=== PATIENT | male | born 1970 | race Caucasian/White ===

== ENCOUNTER 2020-11-24 15:44 | Observation (INO) | payer OTHER, SELFPAY ==
[2020-11-24] VITALS (31 sets, daily range): BP systolic 118–158; BP diastolic 67–100; PULSE 69–94; RESP 0–23; TEMP 36.1–37; O2SAT 90–100; BMI 39.6
--- NOTE | ~2020-11-24 | XR_ITS ---
EXAMINATION: XR chest 2V EXAM DATE: 11/24/2020 16:16 INDICATION: Shortness of breath 3-4 months. Swelling of ankles. Hypertension. TECHNIQUE: Frontal and lateral projections of the chest obtained and reviewed. Comparison is made to prior examination from 12/02/2018. FINDINGS: The lungs are clear. There are no pleural effusions. The cardiomediastinal silhouette is within normal limits. There is no pneumothorax suspected. The bones and soft tissues are unremarkab le. IMPRESSION: Normal chest x-ray exam. Reviewed, dictated and finalized at location A. IMPRESSION: Normal chest x-ray exam.
--- NOTE | ~2020-11-24 | US_ITS ---
US renal BI 11/25/2020 08:54 Procedure: Realtime transabdominal ultrasound of the kidneys and bladder. Indication: History of left nephrectomy. Comparison: Ultrasound dated 10/07/2018 Findings: Right renal echotexture is normal without hydronephrosis, contour deforming mass or renal c alculus. The right kidney measures 13.5 cm. Bladder within normal limits. No abnormalities of the lef t nephrectomy bed. Impression: 1: Unremarkable renal ultrasound post left nephrectomy. Reviewed, dictated and finalized at location A. Impression: 1: Unremarkable renal ultrasound post left nephrectomy.
--- NOTE | ~2020-11-24 | CT_ITS ---
EXAMINATION: CT diagnostic chest wo con EXAM DATE: 11/25/2020 14:00 INDICATION: Shortness of breath. History of lobe resection. Hypertension. Nephrectomy. CHF. TECHNIQUE: Spiral CT of the chest without contrast. Axial, coronal and sagittal images were reviewe d. Coronal maximum intensity pixel images of chest reviewed. The dose-length product (DLP) for this examination was 533.45 mGy-cm. The exposure was tailored according to patient size (auto mA exposur e control), and iterative reconstruction (ASIR) was used as additional dose reduction technique. Comp arison is made to prior examination from 10/10/2018. FINDINGS: The lungs are clear. There are no pleural or pericardial effusions. Tracheobronchial t ree is patent. There is no mediastinal, hilar or axillary lymphadenopathy. There is no pneumothor ax. Heart normal in size. No evidence of coronary arterial calcification. Left nephrectomy. The re is mild thoracic spondylosis without osteoblastic or osteolytic lesions identified. Interval res olution of previously seen large right pleural effusion with complete right lung collapse. There is c hronic pleural thickening at the right lung base. IMPRESSION: No acute cardiopulmonary findings. Reviewed, dictated and finalized at location A.
--- NOTE | 2020-11-24 15:58 | ECG_ITS ---
Measurements Intervals [place] Rate: 77 P: 47 SC: 166 QRS: 42 QRSD: 80 T: 46 QT: 357 QTc: 404 Interpretive Statements SINUS RHYTHM BASELINE ARTIFACT- V1-V3 NORMAL ECG Electronically Signed On 11-24-2020 18:41:45 CDT by Mark García D.O.
[2020-11-24 16:11] LABS: Basophils Absolute Auto 0.1 K/mm3 (0.0-0.1); Basophils Percent Auto 0.6 % (0.2-1.2); Eosinophils Absolute Auto 0.4 K/mm3 (0-0.3); Eosinophils Percent Auto 4.8 % (0-4.4); Hematocrit 47.6 % (42.0-52.0); Hemoglobin 16.6 g/dL (14.0-18.0); Immature Granulocyte Absolute 0.05 K/mm3 (0.00-0.031); Immature Granulocyte Percent A 0.6 % (0-0.5); Lymphocytes Absolute Auto 2.12 K/mm3 (0.9-3.2); Lymphocytes Percent Auto 24.5 % (18.3-44.2); Mean Corpuscular HGB Conc 34.9 g/dl (32-36); Mean Corpuscular Hemoglobin 32.3 pg (26-34); Mean Corpuscular Volume 92.6 fl (80-100); Mean Platelet Volume 9.5 fl (7.4-10.4); Monocytes Absolute Auto 0.8 K/mm3 (0.1-0.6); Monocytes Percent Auto 9.3 % (2.6-8.5); Neutrophils Absolute Auto 5.2 K/mm3 (1.3-6.7); Neutrophils Percent Auto 60.2 % (45.5-73.1); Platelet Count Result 259 k/mm3 (150-375); Red Blood Count 5.14 M/mm3 (4.6-6.20); Red Cell Distribution Width 12.3 % (11.5-14.5); White Blood Count 8.7 K/mm3 (4.5-10.0)
--- NOTE | 2020-11-24 16:21 | ED.SOB ---
HPI - SOB/Dyspnea General Chief Complaint: Shortness of Breath/Dyspnea Stated Complaint: SOB Time Seen by Provider: 11/24/20 15:50 History of Present Illness HPI Narrative: 50 yo male w/ h/o htn, sleep apnea, single kidney presents to the ED with multiple complaints. He says that he is chronically short of breath. This is worse with exertion. He has been diagnosed with COPD, but not currently on any treatment. He does report that he has BLE swelling at times. He was started on lasix yesterday and has no swelling now. He also reports daytime sleepiness and inability to stay asleep at night. he is noncompliant with treatment for sleep apnea. He complains of diffuse skin infections. Currently it is only present on his face, where it is red, painful, and bumpy. He says that at times he has areas of skin folds filled with hair, he has none of these to show right now. Related Data Home Medications Medication Instructions Recorded Confirmed furosemide 11/24/20 hydrochlorothiazide 11/24/20 propranolol 11/24/20 Allergies Allergy/AdvReac Type Severity Reaction Status Date / Time No Known Allergies Allergy Verified 11/24/20 15:59 Review of Systems Review of Systems: All systems reviewed & are unremarkable except as noted in HPI and below Constitutional: Constitutional: Reports fatigue and Denies fever(s) Eyes: Eyes: Reports no additional eye complaints ENT: Reports nasal congestion Cardiovascular: Cardiovascular: Denies chest pain Respiratory: Respiratory: Reports chest congestion and Reports dyspnea Gastrointestinal: Gastrointestinal: Denies abdominal pain and Denies nausea Genitourinary: Genitourinary: Reports no additional male genitourinary complaints Integumentary/Breasts: Skin/Breast: Reports as per HPI Neurologic: Reports system reviewed and no additional complaints, except as documented Endocrine: Endocrine: Reports fatigue PMF Past Medical History Medical History (Updated 11/24/20 @ 19:42 by Placido Marcano MD) HTN (hypertension) Single kidney Sleep apnea Social History Social History (Updated 11/24/20 @ 19:38 by Placido Marcano MD) Substance use: former Gender identity (if verbalized by the patient): Male Sexual Orientation (if Verbalized by the Patient): Straight or Heterosexual Exam Const: General: healthy appearing, no acute distress and alert Orientation/consciousness: patient oriented x3 HENMT: Other: papular mildly erythematous rash to chin and cheeks. nasal edema Eyes: Pupils: Equal, round and reactive pupils present Neck: Neck: normal visual inspection and no lymphadenopathy Chest: Chest palpation & inspection: no tenderness Resp: Effort & Inspection: normal respiratory effort Auscultation: no rales, no rhonchi and wheezes Cardio: Jugular venous distension: no JVD Rate: regular rate Rhythm: regular rhythm Heart sounds: no murmurs GI: Inspection: non-distended GI Palp: Yes Soft to palpation and No Tenderness to palpation present (GI) Skin: Wounds: no wounds Neuro: General: patient oriented x3 and moves all extremities Speech: normal speech Gait exam (Neuro): Normal gait present Extrem: General: normal to inspection and no edema Psych: Appearance: well kempt Affect: normal affect Course Vital Signs Vital signs: Vital Signs Temperature 37.0 C 11/24/20 15:51 Pulse Rate 87 11/24/20 15:51 Respiratory Rate 12 11/24/20 15:51 Blood Pressure 157/94 H 11/24/20 15:51 Pulse Oximetry 97 11/24/20 15:51 Temperature 37.0 C 11/24/20 15:51 Pulse Rate 92 11/24/20 18:46 Respiratory Rate 17 11/24/20 18:46 Blood Pressure 135/90 11/24/20 18:46 Pulse Oximetry 96 11/24/20 18:46 MDM - SOB/Dyspnea MDM Narrative Medical decision making narrative: He has multiple non acute complaints. His BUN and creatinine are elevated. I spoke with his PCP she does believe that this is above his baseline and due to the fact that he has
[2020-11-24 16:50] LABS: Anion Gap 9 mmol/L (8-16); Blood Urea Nitrogen 24 mg/dL (9-20); Calcium 9.6 mg/dL (8.4-10.2); Carbon Dioxide 29 mmol/L (22-30); Chloride 100 mmol/L (98-107); Estimated CRCL calculation 57 ml/min; Estimated Glomerular Filt Rate 40; Glucose 102 mg/dL (75-110); NT Pro B Type Natriuretic Pept 46 PG/ML (5-100); Potassium 4.3 mmol/L (3.4-5.0); Sodium 138 mmol/L (137-145); Troponin I < 0.012 ng/mL (0.000-0.034)
[2020-11-24] MEDS: ALBUTEROL SULFATE NEB 2.5 MG/0.5 ML INH 5 MG INHALATION (16:51)
[2020-11-24] MEDS: IPRATROPIUM BR 0.02% INH SOLN 0.5 MG/2.5 ML VIAL INHALATION (16:52)
[2020-11-24] MEDS: DOXYCYCLINE HYCLATE 100 MG TABLET PO (17:25)
[2020-11-24 17:33] LABS: INR 0.9; Prothrombin Time 12.5 Seconds (11.1-14.7)
[2020-11-24 17:34] LABS: Partial Thromboplastin Time 26.9 SECONDS (22.3-36.8)
--- NOTE | 2020-11-24 19:31 | PC.NURSE ---
Pt presents to ED with complaints of sob. Pt noted to become sob with exertion and lung sounds are diminished bilaterally. Pt in no obvious distress at this time and is saturating at 97% on room air. Pt denies all pain and discomfort at this time. Pt is resting on cart in its lowest position with call button and personal items within reach. Pt advised to press call button for assistance.
--- NOTE | 2020-11-24 19:56 | PC.NURSE ---
Nurse on 3rd [facility] room is not cleaned and to wait to send pt.
--- NOTE | 2020-11-24 20:16 | PC.NURSE ---
Report called to receiving nurseIqra. States room is still not cleaned and will call when completed.
--- NOTE | 2020-11-24 22:25 | PM.IMHP ---
H&P: HPI History of Present Illness Date/Time: 11/24/20 22:25 Chief Complaint: shortness of breath Narrative: This is a pleasant 50-year-old morbidly obese male with known history of undiagnosed COPD, hypertension, and chronic lower extremity swelling presented to the hospital with a complaint of chronic shortness of breath. The patient was seen at [facility] emergency room yesterday and sent home with Lasix therapy secondary to lower extremity swelling. The patient mentions that he has been taking his Lasix as prescribed and decided to come to the hospital tonight as he continues to have exertional shortness of breath. The patient has exertional shortness of breath is chronic in nature and has been ongoing for months according to him. He also complains of having a mild rash on his face which has significantly improved recently. He describes having ingrown hairs that lead to local infections and then clear up. Currently he states that the rash that he has and his face is almost resolved and much better than how it was a few weeks ago. The patient was evaluated emergency room this evening and routine labs demonstrated worsening renal function. Patient denies being exposed to any contrast material. He has been taking the Lasix therapy that was started yesterday. He has never been told that he has congestive heart failure. The patient continues to smoke about half a pack of cigarettes daily. He does report having intermittent wheezing on most days. It appears that his baseline creatinine is about 1.0. Today his creatinine was 1.8. Chest x-ray was obtained which was unremarkable. The patient was treated with bronchodilators and admitted to the hospital for further care. On my encounter with the patient [facility] he denies any significant shortness of breath, fevers, chills, cough, chest pain, palpitations, abdominal pain, dysuria, hematuria, nausea, vomiting, diarrhea, rectal bleeding, lower extremity swelling at this time. Review of Systems Review of Systems: All systems reviewed & are unremarkable except as noted in HPI and below PMFSH Past Medical History Medical History (Updated 11/24/20 @ 22:34 by Won Baltazar MD) HTN (hypertension) Single kidney Sleep apnea Surgical History Surgical History (Updated 11/24/20 @ 22:39 by Won Baltazar MD) History of nephrectomy Family History Family History (Updated 11/24/20 @ 21:18 by Iza Day RN) Father CHF (congestive heart failure) Social History Social History Smoking status: Current every day smoker Tobacco type: cigarettes Additional smoking assessment comments: Pt states he smokes <1 pack/day Alcohol intake: current Substance use: current Substance use type: marijuana Living arrangements: with roommate(s) Gender identity (if verbalized by the patient): Male Sexual Orientation (if Verbalized by the Patient): Straight or Heterosexual Spiritual care concerns: No Meds Home Medications and Allergies Home Medications Medication Instructions Recorded Confirmed Type furosemide 20 mg PO BID 11/24/20 11/24/20 History hydrochlorothiazide 12.5 mg PO DAILY 11/24/20 11/24/20 History propranolol 60 mg PO BID 11/24/20 11/24/20 History Allergies Allergy/AdvReac Type Severity Reaction Status Date / Time No Known Allergies Allergy Verified 11/24/20 21:32 Vital Signs Vital Signs - 24 hr 11/24/20 15:51 11/24/20 15:58 11/24/20 16:00 Temperature 37.0 C Pulse Rate 87 85 83 Respiratory Rate 12 12 16 Blood Pressure 157/94 H Pulse Oximetry 97 96 96 11/24/20 16:02 11/24/20 16:04 11/24/20 16:17 Temperature Pulse Rate 85 77 83 Respiratory Rate 10 L Blood Pressure 145/100 H Pulse Oximetry 95 97 11/24/20 16:30 11/24/20 16:45 11/24/20 16:54 Temperature Pulse Rate 87 76 93 Respiratory Rate 15 20 23 H Blood Pressure Pulse Oximetry 98 96
[2020-11-24] MEDS: PROPRANOLOL HCL 20 MG TABLET 60 MG PO (23:10)
[2020-11-24] MEDS: NICOTINE (*PBKC) 14 MG PATCH 1 PATCH TRANSDERM (23:11)
[2020-11-25 04:26] VITALS: BP 140/80; PULSE 68; RESP 14; TEMP 36.2; O2SAT 98
[2020-11-25 06:34] LABS: Basophils Percent Auto 0.5 % (0.2-1.2); Eosinophils Absolute Auto 0.3 K/mm3 (0-0.3); Eosinophils Percent Auto 4.2 % (0-4.4); Hematocrit 47.4 % (42.0-52.0); Hemoglobin 16.2 g/dL (14.0-18.0); Immature Granulocyte Absolute 0.06 K/mm3 (0.00-0.031); Immature Granulocyte Percent A 0.7 % (0-0.5); Lymphocytes Absolute Auto 2.37 K/mm3 (0.9-3.2); Mean Corpuscular HGB Conc 34.2 g/dl (32-36); Mean Corpuscular Volume 93.7 fl (80-100); Mean Platelet Volume 9.9 fl (7.4-10.4); Monocytes Percent Auto 12.5 % (2.6-8.5); Neutrophils Absolute Auto 4.3 K/mm3 (1.3-6.7); Neutrophils Percent Auto 53.1 % (45.5-73.1); Platelet Count Result 238 k/mm3 (150-375); Red Blood Count 5.06 M/mm3 (4.6-6.20); Red Cell Distribution Width 12.4 % (11.5-14.5); White Blood Count 8.2 K/mm3 (4.5-10.0)
[2020-11-25 06:50] LABS: Anion Gap 6 mmol/L (8-16); Blood Urea Nitrogen 28 mg/dL (9-20); Calcium 9.2 mg/dL (8.4-10.2); Carbon Dioxide 31 mmol/L (22-30); Chloride 102 mmol/L (98-107); Estimated CRCL calculation 67 ml/min; Estimated Glomerular Filt Rate 49; Glucose 110 mg/dL (75-110); Potassium 4.2 mmol/L (3.4-5.0); Sodium 139 mmol/L (137-145)
[2020-11-25 09:47] VITALS: PULSE 68
[2020-11-25] MEDS: PROPRANOLOL HCL 20 MG TABLET 60 MG PO ×2 (09:47→21:05)
[2020-11-25 11:45] VITALS: PULSE 68; RESP 16; O2SAT 98
--- NOTE | 2020-11-25 13:29 | PM.IMPN ---
Progress Note: A&P Assessment and Plan (1) Shortness of breath: Code(s): R06.02 - Shortness of breath Status: Acute Assessment and Plan: Likely secondary to undiagnosed COPD and possibly undiagnosed cardiomyopathy. cont bronchodilators. The patient has clear lung toro and chest x-ray is unremarkable. -> worsening SOB x one month CT and ECHO ordered outpt referral to see pulmonology for formal pulmonary function testing. bronchodilators prescribed on discharge. Currently the patient is not fluid overloaded. smoking cessation counseling (2) ISHAN (acute kidney injury): Code(s): N17.9 - Acute kidney failure, unspecified Status: Acute Assessment and Plan: Acute kidney injury is likely secondary to Lasix and hydrochlorothiazide use. renal function improving today Avoid nephrotoxin agents. Renally dose medications. no UTI (3) HTN (hypertension): Code(s): I10 - Essential (primary) hypertension Status: Chronic Assessment and Plan: Monitor blood pressure. cont P.r.n. IV hydralazine is ordered. Resume home diuretic therapy once renal function has improved (4) Tobacco dependence: Code(s): F17.200 - Nicotine dependence, unspecified, uncomplicated Status: Chronic Assessment and Plan: I have readdressed need for smoking cessation w patient regarding tobacco dependence again today in addition to 4 minutes at time of admission. cont nicotine patch Subjective Date/time seen: 11/25/20 13:29 Review of Systems Review of Systems: All systems reviewed & are unremarkable except as noted in HPI and below Constitutional: Comments: Excessive sleepiness and fatigue Respiratory: Respiratory: Reports dyspnea on exertion (Minimal exertion for the last month) Exam Narrative: Exam Narrative: GEN: NAD, AAOx3, cooperative HEENT: NCAT, MMM, EOMI Neck: no JVD Heart: S1S2 RRR Lungs: CTA B/l thoracotomy scar over right lateral posterior thorax Abd: soft, NT, ND, bowel sounds normoactive Ext: moves all, no cyanosis, no clubbing, no edema Neuro: moves all extremities equally, no focal motor weakness, no sensory deficit Psych: mood and affect congruent Objective Data Vital Signs Vital Signs: Vital Signs - 24 hr 11/24/20 15:51 11/24/20 15:58 11/24/20 16:00 Temperature 98.6 F Pulse Rate 87 85 83 Respiratory Rate 12 12 16 Blood Pressure 157/94 H Pulse Oximetry 97 96 96 11/24/20 16:02 11/24/20 16:04 11/24/20 16:17 Temperature Pulse Rate 85 77 83 Respiratory Rate 10 L Blood Pressure 145/100 H Pulse Oximetry 95 97 11/24/20 16:30 11/24/20 16:45 11/24/20 16:54 Temperature Pulse Rate 87 76 93 Respiratory Rate 15 20 23 H Blood Pressure Pulse Oximetry 98 96 11/24/20 17:00 11/24/20 17:02 11/24/20 17:15 Temperature Pulse Rate 94 81 70 Respiratory Rate 11 L 20 14 Blood Pressure Pulse Oximetry 100 96 11/24/20 17:25 11/24/20 17:26 11/24/20 17:30 Temperature Pulse Rate 86 77 79 Respiratory Rate 14 18 19 Blood Pressure 118/82 Pulse Oximetry 94 94 93 11/24/20 17:31 11/24/20 17:45 11/24/20 17:47 Temperature Pulse Rate 80 75 74 Respiratory Rate 17 20 18 Blood Pressure 133/79 136/67 Pulse Oximetry 93 90 93 11/24/20 17:48 11/24/20 18:00 11/24/20 18:02 Temperature Pulse Rate 69 88 77 Respiratory Rate 20 21 H 17 Blood Pressure 131/95 H Pulse Oximetry 93 95 95 11/24/20 18:15 11/24/20 18:16 11/24/20 18:30 Temperature Pulse Rate 91 85 91 Respiratory Rate 15 15 14 Blood Pressure 145/95 H Pulse Oximetry 93 97 95 11/24/20 18:32 11/24/20 18:45 11/24/20 18:46 Temperature Pulse Rate 94 93 92 Respiratory Rate 0 L 23 H 17 Blood Pressure 134/80 135/90 Pulse Oximetry 94 95 96 11/24/20 19:53 11/24/20 19:54 11/24/20 21:46 Temperature 97 F L Pulse Rate 87 87 Respiratory Rate 19 17 Blood Pressure 150/80 H 158/86 H Pulse Oximetry 94 94 96 11/24/20 23:
[2020-11-25 14:00] VITALS: BP 142/84; PULSE 72; RESP 16; TEMP 36.7; O2SAT 99
[2020-11-25 19:31] VITALS: BP 137/84; PULSE 88; RESP 17; TEMP 36.2; O2SAT 96
[2020-11-25 21:05] VITALS: PULSE 68
[2020-11-25] MEDS: NICOTINE (*PBKC) 14 MG PATCH 1 PATCH TRANSDERM (22:22)
--- NOTE | 2020-11-25 22:39 | ECHO_ITS ---
Patient Info Name: Roberto Alarcon Age: 50 years : 1970 Gender: Male Ht: 69 in Wt: 268 lbs BSA: 2.49 m2 HR: 65 bpm BP: 140 / 80 mmHg Heart Rhythm: Sinus Rhythm Technical Quality: Fair Exam Date: 11/25/2020 2:17 PM Exam Location: [facility] Pulmonary Patient Status: Inpatient Admit Date: 11/24/2020 Staff Ordering Physician: Won Baltazar MD Spark Plug Assembler: Kristin Arrington RDCS Attending Provider: Wen Quiles MD Referring Physician: Giovanny VARGAS; Exam Type: CA echo doppler color flow Study Info Indications I50.9 - Heart failure, unspecified Complete two-dimensional, color flow and Doppler transthoracic echocardiogram is performed. Summary 1. Complete two-dimensional, color flow and Doppler transthoracic echocardiogram is performed. 2. Normal left ventricular size, thickness and function with no focal wall motion abnormalities. Calculated ejection fraction 69%, visual ejection fraction 65-70%. Grade 1 diastolic dysfunction is present. There is some mild septal hypertrophy with no outflow obstruction. 3. Floppy possibly aneurysmal atrial septum. 4. Dilated sinus of Valsalva 4.1 cm. Normal ascending aorta, 3.0 cm. 5. No significant valve disease. 6. Normal sinus rhythm. Left Ventricle Left ventricular chamber dimension is normal. Left ventricular systolic function is normal, estimated at 65-70%. There is no increased left ventricular wall thickness. Left ventricular septal wall motion is normal. The left ventricular diastolic function is grade I diastolic dysfunction. Right Ventricle Right ventricular chamber dimension is normal. Right ventricular systolic function is normal. Left Atria Left atrial chamber dimension is normal. Right Atria Right atrial chamber dimension is normal. Aortic Valve The aortic valve is trileaflet. There is no aortic valve sclerosis. There is no aortic valve stenosis. There is no aortic valve regurgitation. Pulmonic Valve The pulmonic valve is normal. There is no pulmonic valve stenosis. There is no pulmonic regurgitation. Mitral Valve The mitral valve has normal leaflets. There is no mitral valve stenosis. There is no mitral valve regurgitation. Tricuspid Valve The tricuspid valve leaflets are normal. There is no significant tricuspid valve stenosis. There is trace tricuspid valve regurgitation. No pulmonary hypertension, estimated pulmonary arterial systolic pressure is 29 mmHg. Pericardium/Pleural The pericardium appears normal. There is no pericardial effusion. Inferior Vena Cava Normal inferior vena cava with >50% collapse upon inspiration consistent with Empty right atrial pressure, 10 mmHg. Aorta The aortic root size at the sinus of Valsalva is mildly dilated. The prox ascending aorta size is normal. Left Ventricular Outflow Tract Name Value Normal LVOT 2D LVOT Diameter 2.1 cm LVOT Doppler LVOT Peak Gradient 6 mmHg LVOT Mean Gradient 4 mmHg LVOT VTI 23 cm LVOT VTI/AV VTI Ratio 0.9
[2020-11-26 05:33] VITALS: BP 113/77; PULSE 70; RESP 17; TEMP 36.1; O2SAT 98
[2020-11-26 08:50] VITALS: PULSE 70
[2020-11-26] MEDS: PROPRANOLOL HCL 20 MG TABLET 60 MG PO (08:50)
[2020-11-26] MEDS: traMADol HCL (*CRX) 50 MG TABLET PO (09:30)
[2020-11-26 09:50] LABS: Hematocrit 46.1 % (42.0-52.0); Hemoglobin 15.8 g/dL (14.0-18.0); Mean Corpuscular HGB Conc 34.3 g/dl (32-36); Mean Corpuscular Hemoglobin 32.2 pg (26-34); Mean Corpuscular Volume 94.1 fl (80-100); Mean Platelet Volume 9.7 fl (7.4-10.4); Platelet Count Result 220 k/mm3 (150-375); Red Cell Distribution Width 12.5 % (11.5-14.5); White Blood Count 7.4 K/mm3 (4.5-10.0)
[2020-11-26 10:02] LABS: Alanine Aminotransferase 33 U/L (4-50); Albumin Level 3.8 g/dL (3.5-5.1); Alkaline Phosphatase 57 U/L (38-126); Anion Gap 5 mmol/L (8-16); Aspartate Amino Transferase 28 U/L (17-59); Bilirubin,Total 0.6 mg/dL (0.2-1.3); Blood Urea Nitrogen 26 mg/dL (9-20); Calcium 9.4 mg/dL (8.4-10.2); Carbon Dioxide 28 mmol/L (22-30); Chloride 103 mmol/L (98-107); Estimated CRCL calculation 77 ml/min; Estimated Glomerular Filt Rate 58; Glucose 188 mg/dL (75-110); Magnesium 1.8 mg/dL (1.6-2.3); Potassium 4.3 mmol/L (3.4-5.0); Sodium 136 mmol/L (137-145)
--- NOTE | 2020-11-26 12:38 | PM.DS ---
DS: Admitting Diagnosis Admitting Diagnosis Admitting Diagnosis: SOB ISHAN chronic back pain Tob dependence DS: Discharge Diagnosis Discharge Diagnosis (1) COPD (chronic obstructive pulmonary disease): Code(s): J44.9 - Chronic obstructive pulmonary disease, unspecified Status: Acute (2) Chronic back pain: Code(s): M54.9 - Dorsalgia, unspecified; G89.29 - Other chronic pain Status: Acute (3) Tobacco dependence: Code(s): F17.200 - Nicotine dependence, unspecified, uncomplicated Status: Chronic (4) HTN (hypertension): Code(s): I10 - Essential (primary) hypertension Status: Chronic (5) ISHAN (acute kidney injury): Code(s): N17.9 - Acute kidney failure, unspecified Status: Acute (6) Shortness of breath: Code(s): R06.02 - Shortness of breath Status: Acute (7) Folliculitis barbae: Code(s): L73.8 - Other specified follicular disorders Status: Acute (8) Seborrheic dermatitis: Code(s): L21.9 - Seborrheic dermatitis, unspecified Status: Acute DS: Summary Hospital Course Reason for hospitalization: SOB Hospital Course: 50-year-old male admitted to the hospital with complaint of shortness of breath for 4 weeks and LE swelling intermittently for 2 weeks. He was found to be in ISHAN and NSAIDs, lasix, and hctz were held. His renal function improved. Pt had ECHO in pt that showed a mild grade [address] chest which was without acute findings. He was counseled extensively on need for smoking cessation. and pt was subsequently discharged on RA in stable condition w new COPD regimen and antibiotic ointment for his folliculitis barbae, Tramadol and Tylenol for his chronic back pain. He has been counseled to avoid NSAIDs as they can be harmful to his solitary kidney. Pt has been started on Advair at time of dc and prescribed rescue inhaler. He is advised to follow up w pulmonology for PFTs. Bactroban prescribed for folliculitis. Blood pressure remained within normal limits during hospitalization without medical therapy. Advised patient to follow-up with PCP for ongoing evaluation and management of blood pressure in the outpatient setting. Time spent discussing smoking cessation with patient: more than 10 minutes Status at Discharge Functional status at discharge: independent ambulation Overall status at discharge: patient is back to baseline Time Spent with Patient Time attestation: Total time spent providing and/or coordinating discharge services: >30 min spent for this encounter Exam Narrative: Exam Narrative: GEN: NAD, AAOx3, cooperative HEENT: NCAT, MMM, EOMI Neck: no JVD Heart: S1S2 RRR Lungs: CTA B/l Ext: moves all, no cyanosis, no clubbing, no edema Neuro: CN intact, moves all extremities equally Psych: mood and affect congruent DS: Data Data Completed and Pending Labs on day of discharge: Labs from last 24 hours 11/26/20 11/26/20 11/24/20 09:34 09:34 16:00 WBC 7.4 RBC 4.90 Hgb 15.8 Hct 46.1 MCV 94.1 MCH 32.2 MCHC 34.3 RDW 12.5 Plt Count 220 MPV 9.7 Sodium 136 L 138 Potassium 4.3 4.3 Chloride 103 100 Carbon Dioxide 28 29 Anion Gap 5 L 9 BUN 26 H 24 H Creatinine 1.30 1.80 H Estim Creat Clear Calc 77 57 Estimated GFR 58 L 40 L Glucose 188 H 102 Calcium 9.4 9.6 Magnesium 1.8 Total Bilirubin 0.6 AST 28 ALT 33 Alkaline Phosphatase 57 Troponin I < 0.012 NT-Pro-B Natriuret Pep 46 Total Protein 6.0 L Albumin 3.8 Discharge Plan Discharge Attending physician on discharge: Wen Quiles Consulting providers: Luiz Rodriguez Discharging Clinician: Wen Quiles Anticipated Discharge Date/Time: 11/26/20 12:12 Patient Disposition: Home, Self-Care Activity: as tolerated Diet: heart healthy Discharge Instructions: Follow-up with pipelines supervisor for pulmonary function testing Pat
[2020-11-26 14:00] VITALS: BP 104/78; PULSE 96; RESP 18; TEMP 36.4; O2SAT 97
== END 2020-11-26 15:45 | disposition home or self-care (01) ==
LOC: ANHED 16:09 → ANH3MED 19:27
PROVIDERS: Emergency Medicine; Family Medicine; Admitting Provider Family Medicine; Emergency Provider Emergency Medicine; PCP Internal Medicine; Visit Provider Hospitalist
DX: R06.02 Shortness of breath (principal); N17.9 Acute kidney failure, unspecified; J44.9 Chronic obstructive pulmonary disease, unspecified; E66.01 Morbid (severe) obesity due to excess calories; F17.210 Nicotine dependence, cigarettes, uncomplicated; G47.33 Obstructive sleep apnea (adult) (pediatric); I10 Essential (primary) hypertension; L21.9 Seborrheic dermatitis, unspecified; L73.8 Other specified follicular disorders; M79.89 Other specified soft tissue disorders; Z68.39 Body mass index [BMI] 39.0-39.9, adult; Z90.5 Acquired absence of kidney
CPT/HCPCS: 36415; 71046; 71250; 76775; 80048; 80053; 83735; 83880; 84484; 85025; 85027; 85610; 85730; 93005; 93306; 94640; 99285; A9270; G0378; G0379; Q9957

== ENCOUNTER 2021-04-01 19:42 | Emergency (ER) | payer OTHER, SELFPAY ==
--- NOTE | ~2021-04-01 | XR_ITS ---
EXAMINATION: XR chest 2V DATE: 04/01/2021 19:57 INDICATION: Chest pain and shortness of breath TECHNIQUE: PA and lateral views of the chest are obtained. COMPARISON: 11/24/2020 FINDINGS: The lungs are free of acute opacities. There is no pleural effusion or pneumothorax. The ca rdiomediastinal silhouette is normal. There is mild thoracic spondylosis. Surgical clips are noted in the left upper abdomen. IMPRESSION: 1. No acute cardiopulmonary abnormality. Reviewed, dictated and finalized at location A.
[2021-04-01 19:46] VITALS: BP 169/108; PULSE 112; RESP 20; TEMP 36.4; O2SAT 98
--- NOTE | 2021-04-01 19:46 | ECG_ITS ---
Measurements Intervals Freedom Rate: 105 P: 42 [place]: 163 QRS: 19 QRSD: 83 T: 42 QT: 316 QTc: 419 Interpretive Statements SINUS TACHYCARDIA BASELINE WANDER- II, III, AVF, V1-V2 ABNORMAL ECG Electronically Signed On 04-02-2021 7:31:38 CDT by Mark García D.O.
[2021-04-01 20:12] LABS: Basophils Percent Auto 0.6 % (0.2-1.2); Eosinophils Absolute Auto 0.3 K/mm3 (0-0.3); Eosinophils Percent Auto 3.9 % (0-4.4); Hematocrit 43.6 % (42.0-52.0); Immature Granulocyte Absolute 0.03 K/mm3 (0.00-0.031); Immature Granulocyte Percent A 0.4 % (0-0.5); Lymphocytes Absolute Auto 1.73 K/mm3 (0.9-3.2); Lymphocytes Percent Auto 24.3 % (18.3-44.2); Mean Corpuscular HGB Conc 34.4 g/dl (32-36); Mean Corpuscular Hemoglobin 32.6 pg (26-34); Mean Corpuscular Volume 94.8 fl (80-100); Mean Platelet Volume 9.5 fl (7.4-10.4); Monocytes Absolute Auto 0.8 K/mm3 (0.1-0.6); Monocytes Percent Auto 11.4 % (2.6-8.5); Neutrophils Absolute Auto 4.2 K/mm3 (1.3-6.7); Neutrophils Percent Auto 59.4 % (45.5-73.1); Platelet Count Result 260 k/mm3 (150-375); Red Cell Distribution Width 12.2 % (11.5-14.5); White Blood Count 7.1 K/mm3 (4.5-10.0)
[2021-04-01 20:18] VITALS: O2SAT 95
[2021-04-01 20:20] LABS: Anion Gap 9 mmol/L (8-16); Blood Urea Nitrogen 21 mg/dL (9-20); Calcium 9.4 mg/dL (8.4-10.2); Carbon Dioxide 26 mmol/L (22-30); Chloride 103 mmol/L (98-107); Estimated Glomerular Filt Rate 58; Glucose 145 mg/dL (65-110); Potassium 3.7 mmol/L (3.4-5.0); Sodium 138 mmol/L (137-145)
[2021-04-01] MEDS: ALBUTEROL SULFATE NEB 2.5 MG/0.5 ML INH 5 MG INHALATION (21:41)
[2021-04-01] MEDS: IPRATROPIUM BR 0.02% INH SOLN 0.5 MG/2.5 ML VIAL INHALATION (21:41)
[2021-04-01 21:44] VITALS: PULSE 97; RESP 22
[2021-04-01 21:51] VITALS: PULSE 95; RESP 22
[2021-04-01 22:29] VITALS: BP 140/89; PULSE 98; RESP 14; O2SAT 94
--- NOTE | 2021-04-01 22:33 | ED.SOB ---
HPI - SOB/Dyspnea General Chief Complaint: Shortness of Breath/Dyspnea Stated Complaint: SOB for a long time Time Seen by Provider: 04/01/21 20:19 History of Present Illness HPI Narrative: Patient is a 50-year-old male who presents ER with complaints of cold-like symptoms and fatigue. Patient reports for months he has been having sinus congestion with cough. He also reports she is sleeping 24 hours a day. He reports that when he gets like this he needs pathologies and cultures performed to get to the underlying source of what is going on. He does have a primary care physician who is giving him referrals to an unknown doctor. Reports that anytime he gets a referral it take 6 months to get in and he feels this is unacceptable. No loss of taste or smell. No known sick contacts. Related Data Home Medications Medication Instructions Recorded Confirmed propranolol 60 mg PO BID 11/24/20 11/24/20 cephalexin 04/01/21 doxycycline hyclate 04/01/21 hydrochlorothiazide 04/01/21 Allergies Allergy/AdvReac Type Severity Reaction Status Date / Time No Known Allergies Allergy Verified 04/01/21 20:17 Review of Systems Review of Systems: All systems reviewed & are unremarkable except as noted in HPI and below Constitutional: Constitutional: Denies chills, Reports fatigue, Denies fever(s) and Reports weakness ENT: Reports nasal congestion and Denies sore throat Respiratory: Respiratory: Reports chest congestion, Reports cough, Reports dyspnea and Reports wheezing Gastrointestinal: Gastrointestinal: Denies abdominal pain, Denies nausea and Denies vomiting PMFSH Past Medical History Medical History (Updated 04/01/21 @ 22:38 by Aston Wyatt MD) Bipolar 1 disorder Diastolic CHF, chronic HTN (hypertension) Polysubstance abuse Single kidney Sleep apnea Surgical History Surgical History (Updated 11/24/20 @ 22:39 by Won BaltazarMD) History of nephrectomy Family History Family History (Updated 11/24/20 @ 21:18 by Iza Day RN) Father CHF (congestive heart failure) Social History Social History Smoking status: Current every day smoker Tobacco type: cigarettes Additional smoking assessment comments: Pt states he smokes <1 pack/day Alcohol intake: current Substance use: current Substance use type: marijuana Gender identity (if verbalized by the patient): Male Spiritual care concerns: No Exam Narrative: GENERAL: Well-appearing, well-nourished, and in no acute distress. HEAD: Normocephalic, atraumatic. CHEST: Faint end expiratory wheezing. No respiratory distress. HEART: Regular rate and rhythm. Normal peripheral pulses. ABDOMEN: Soft, nontender, nondistended. EXTREMITIES: Normal range of motion. No edema. SKIN: Warm, dry, no rash. NEURO: Aert and oriented x3. PSYCH: Normal mood and affect. Course Course Emergency Course: Labs unremarkable. Chest x-ray without infectious process. Patient swabbed for Covid as she has not been vaccinated he is reporting cold-like symptoms. Discussed I would like to place patient on steroids to treat as bronchitis/COPD exacerbation. Patient wants cultures and other pathologies performed. Discussed that I do not have a reason to admit him to the hospital and patient treatment should suffice. Patient reports he is just going to check out and check back in through the back door if this occurs. Patient also became very distraught and angry at one point during the exam because asked him to clear his throat and stop making referred upper respiratory noises. Patient reports he is not yelling that he just speaks loudly we would know if he was yelling. Vital Signs Vital signs: Vital Signs Temperature 97.6 F 04/01/21 19:46 Pulse Rate 112 H 04/01/21 19:46 Respiratory Rate 20 04/01/21 19:46 Blood Pressure 169/108 H 04/01/21 19:46 Pulse Oximetry 98 04/01/21 19:46 Temperat
--- NOTE | 2021-04-01 22:58 | PC.NURSE ---
pt upset and states he will be checking in the back door if he is forced to leave out the front door . Security called. Pt left the ed and states I will be back in the morning .
[2021-04-02 18:26] LABS: SARS-CoV-2 RNA PCR Negative
== END 2021-04-01 22:46 | disposition home or self-care (01) ==
PROVIDERS: Emergency Medicine; Emergency Provider Emergency Medicine; PCP Internal Medicine
DX: J40 Bronchitis, not specified as acute or chronic (principal); Z20.822 Contact with and (suspected) exposure to COVID-19; I50.32 Chronic diastolic (congestive) heart failure; G47.30 Sleep apnea, unspecified; I11.0 Hypertensive heart disease with heart failure; Z90.5 Acquired absence of kidney; F17.210 Nicotine dependence, cigarettes, uncomplicated; R00.0 Tachycardia, unspecified
CPT/HCPCS: 36415; 71046; 80048; 85025; 93005; 94640; 99284; C9803; U0003; U0005

== ENCOUNTER 2023-04-06 13:38 | Outpatient (CLI) | payer OTHER, SELFPAY ==
--- NOTE | ~2023-04-06 | US_ITS ---
EXAMINATION: US soft tissue upper back DATE: 04/06/2023 14:08 INDICATION: Mass of skin. TECHNIQUE: Multiple grayscale and Doppler ultrasound images of the back were obtained. COMPARISON: Chest CT 11/25/2020 FINDINGS: In the left inferior posterior thorax, there is a 4.3 x 1.3 x 5.6 cm intramuscular lipoma. IMPRESSION: 1. 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 Reviewed, dictated and finalized at location B.
== END 2023-04-06 13:39 | disposition home or self-care (01) ==
PROVIDERS: PCP Internal Medicine; Visit Provider Internal Medicine
DX: D17.1 Benign lipomatous neoplasm of skin and subcutaneous tissue of trunk (principal)
CPT/HCPCS: 76604

== ENCOUNTER 2025-05-28 12:08 | Outpatient (CLI) | payer OTHER, SELFPAY ==
--- OUTSIDE RECORDS SUMMARY | 2011-01-06 19:00 | XMS_ITS | Continuity of Care Document ---
[facility] Organization [facility] Address [address] [place] [address] Phone Care Team Providers Care Bog Worker Name Role Phone Deng Chaparro MD Unavailable Unavailable Medications Medication Instructions Dosage Effective Dates (start - stop) Status Comments SOMA 350 MG TABLET 1 TID - Active ULTRAM 50 MG TABLET 2 QID - Active LORTAB 10/500 TABLET 1 Q 6HR 2005 - No Longer Active ULTRAM 50 MG TABLET 2 QID No Longer Active ULTRAM 50 MG TABLET 2 QID No Longer Active ULTRAM 50 MG TABLET 2 QID No Longer Active SOMA 350MG TABS 1 TID - No Longer Active ULTRAM 50MG TABS 2 QID - No Longer Active LORTAB 10-500MG TABS 1 Q 6HR 2005 - No Longer Active Advance Directives Directive Yes / No Effective Date File Name No Information Encounters Encounter Description Practice Location Reason(s) For Visit Diagnoses Date Provider Providers Copied on Encounter [facility] [address], [place], [place], [id number], [place] tel:[phone] [facility] IM No Information Shankar Vilchis. [address], [place], [place], [address]. tel:[phone] [facility]), [address], [place], [place], [address], tel:[phone] [facility] BACKACHE NOS Conversion Doctor. [address], [place], [address], [place]. [facility], [address], [place], [place], [address], tel:[phone] [facility] IM JOINT PAIN-L/LEG Shankar Vilchis. [address], [place], [place], [address]. tel:[phone] Family History Family Member Type Diagnosis Age At Onset No Information Payers Payer name Insurance type Covered constitution party ID Authoriza tion(s) No Information Social History Type Description Quantity Date Captured Comments Sex Male Smoking Status No Information Chief Complaint And Reason For Visit No Information Reason For Referral Reason For Referral No Information History Of Present Illness Encounter Date Complaint History Of Prese nt Illness No Information Functional Status Date Functional Assessmen t No Information Instructions Date Instruction Additional Infor mation No Information Assessments Type Assessment Date No Information Patient Care Teams Name Effective Dates (start - stop) Status Members No Information
[2025-05-28 12:32] LABS: Hematocrit 40.6 % (40.0-54.0); Hemoglobin 13.0 g/dL (14.0-18.0); Immature Granulocyte Percent A 0.4 % (0.0-0.0); Lymphocytes Absolute Auto 1.92 K/mm3 (1.10-4.50); Mean Corpuscular HGB Conc 32.0 g/dL (32-36); Mean Corpuscular Hemoglobin 30.0 pg (27.0-31.0); Mean Corpuscular Volume 93.8 fL (78.0-102.0); Nucleated Red Blood Cells Absolute Auto 0.04 K/mm3 (0.00-0.00); Nucleated Red Blood Cells Perc 0.5 % (0-0.0); Platelet Count Result 229 K/mm3 (150-420); Red Blood Count 4.33 M/mm3 (4.70-6.10); White Blood Count 8.0 K/mm3 (4.8-10.8)
[2025-05-28 14:34] LABS: Alanine Aminotransferase 24 U/L (6-50); Albumin Level 4.2 g/dL (3.5-5.1); Alkaline Phosphatase 67 U/L (38-126); Anion Gap 9 mmol/L (4-12); Aspartate Amino Transferase 26 U/L (17-59); Bilirubin,Total 0.4 mg/dL (0.2-1.3); Blood Urea Nitrogen 27 mg/dL (9-20); Calcium 10.0 mg/dL (8.4-10.2); Carbon Dioxide 28 mmol/L (22-30); Chloride 104 mmol/L (98-107); Cholesterol 182 mg/dL (0-200); Estimated Glomerular Filt Rate 54; Glucose 95 mg/dL (65-110); HDL Direct 48 mg/dL; Osmolality Calculated 297 mOsm/kg (285-295); Potassium 4.7 mmol/L (3.4-5.0); Sodium 141 mmol/L (137-145); Total Protein 6.6 g/dL (6.3-8.2); Triglycerides 138 mg/dL (<150)
--- OUTSIDE RECORDS SUMMARY | 2025-05-28 14:42 | XMS_ITS | Clinical Summary ---
Author Organization [facility] Address [address] [place] [address] Care Team Providers Care Life Trainer Name Role Phone Jarocho Plummer MD Primary Care Provider [phone] Allergies No known active allergies Medications DULoxetine DR (CYMBALTA) 60 mg capsule Take 60 mg by mouth daily. Active propranolol (INDERAL) 40 mg tablet Take 40 mg by mouth 4 (four) times a day. Active naproxen (NAPROSYN) 250 mg tablet Take by mouth 2 (two) times a day with meals. Active oxyCODONE-aceta minophen (PERCOCET) 5-325 mg per tabletIndicatio ns:Pain Take 1-2 tablets by mouth every 6 (six) hours as needed for pain (1 tablet for mild to moderate pain or 2 tablets for severe pain). 8 tablet 03/03/2018 Active furosemide (LASIX) 20 mg tablet Take 1 tablet (20 mg total) by mouth 2 (two) times a day for 3 days 6 tablet 11/21/2020 Active primidone (MYSOLINE) 50 mg tabletIndicatio ns:Essential tremor 1/4 tab qhs for 1 week, 1/2 tab po qhs for 1 week, 1/4 tab qam and 1/2 tab qhs for 1 week, 1/2 tab po bid for 1 week, 1/2 tab qam, 1 tab qhs for 1 week, then 1 tab bid 120 tablet 3 01/28/2021 Active hydroCHLOROthia zide (HYDRODIURIL) 12.5 mg tablet Take 12.5 mg by mouth daily 01/24/2021 Active Active Problems Problem Noted Date Diagnosed Date Essential tremor 01/28/2021 Surgical History Surgery Date Site/Laterality Comments W[place] NEPHRECTOMY W/PRTL URETER ECTOMY W/OPEN RIB RESCJ Nephrectomy - (Added by HALIE Conv) BACK SURGERY Back Surgery - (Added by HALIE Conv) Medical History Medical History Date Comments Personal history of other di seases of the nervous system and sense organs History of radicul opathy - (Added by HALIE Conv) Family History Medical History Relation Name Comments Diabetes Father Heart failure Father Relation Name Status Comments Father Social History Tobacco Use Types Packs/Day Years Used Date Smoking Tobacco: Every Day Cigarettes 1 35 Smokeless Tobacco: Never Tobacco Cessation:Ready to Q uit: No; Counseling Given: Yes Alcohol Use Standard Drinks/Week Comments No 0 (1 standard drink = 0.6 oz pur e alcohol) Sex and Gender Information Value Date Recorded Sex Assigned at Not on file 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 Gender Identity Not on file Sexual Orientation Not on file Obstetrics History Last Filed Vital Signs Vital Sign Reading Time Taken Comments Blood Pressure 150/88 02/17/2021 11:51 AM CDT Pulse 60 02/17/2021 11:51 AM CDT Temperature 36.4 C (97.6 F) 11/21/2020 5:37 PM CDT Respiratory Rate 18 11/21/2020 5:37 PM CDT Oxygen Saturation 93% 11/21/2020 8:00 PM CDT Inhaled Oxygen Concentration - - Weight 125.2 kg (276 lb) 02/17/2021 11:51 AM CDT Height 175.3 cm (5' 9) 02/17/2021 11:51 AM CDT Body Mass Index 40.76 02/17/2021 11:51 AM CDT Plan of Treatment Health Maintenance Due Date Last Done Comments Colon Cancer Screening-Colonoscopy 1968 Depression Screening 1968 Hepatitis C Screening 1968 Prostate Cancer Screening-PSA 1968 DTaP/Tdap/Td Vaccine (1 - Tdap) 11/19/1979 Hepatitis B Screening 1986 Regular Well Visit/Exam 18-64 1986 Pneumococcal vaccine <65 (1 of 2 - PCV) 11/19/1987 Zoster Vaccine (1 of 2) 2018 Influenza Vaccine (#1) 2025 10/12/2018 Insurance Care Teams Life Trainer Relationship Specialty Start Date End Date Jarocho Plummer MD [address] [place] [address] PCP - General Internal Medicine 01/26/21
--- OUTSIDE RECORDS SUMMARY | 2025-05-28 14:42 | XMS_ITS | Clinical Summary ---
Author Organization [facility] Facility Address [address] [address] Care Team Providers Care Freelance Graphic Designer Name Role Phone Unavailable Primary Care Provider Unavailabl e Allergies No known active allergies Medications albuterol HFA (PROVENTIL HFA;VENTOLIN HFA) 108 (90 Base) MCG/ACT inhaler Inhale 1 puff every 4 (four) hours if needed Active hydroCHLOROthiaz darren (HYDRODIURIL) 12.5 MG tablet Take 12.5 mg by mouth 1 (one) time each day Active pregabalin (LYRICA) 50 MG capsule Take 50 mg by mouth 2 (two) times a day Active propranolol (INDERAL) 60 MG tablet Take 60 mg by mouth 2 (two) times a day Active Social History Tobacco Use Types Packs/Day Years Used Date Smoking Tobacco: Never Assessed Sex and Gender Information Value Date Recorded Sex Assigned at Not on file Legal Sex Male 1:35 PM EDT Gender Identity Not on file Sexual Orientation Not on file Plan of Treatment Health Maintenance Due Date Last Done Comments Hepatitis B Vaccine (1 of 3 - 19+ 3-dose series) 11/18 Colorectal Cancer Screening: Annual FOBT 2017 Colorectal Cancer Screening: Colonoscopy 2017 Colorectal Cancer Screening: Sigmoidoscopy 2017 Pneumococcal Vaccine: 50+ Years (1 of 1 - PCV) 019 Influenza Vaccine (#1) 2025
--- OUTSIDE RECORDS SUMMARY | 2025-05-28 14:42 | XMS_ITS | Patient Health Record ---
Author Organization [facility] Address [address] [place] [address] Care Team Providers Care Tar Distributor Operator Name Role Phone Garett Walker Unavailable [phone] Reason For Referral No Information Medications Medication SIG (Take, Route, Frequency, Duration) Notes Start Date End Date Status Venlafaxine HCl 37.5 MG Tablet Oral Active lamoTRIgine 100 MG Tablet Oral Active Clarithromycin 500 MG Tablet Oral Active HYDROcodone-Acetaminophen 7.5-325 MG Tablet Oral Active Wellbutrin SR 150 MG Tablet Extended Release 12 Hour Oral Act zara traMADol HCl 50 MG Tablet Oral Active ProAir HFA 108 (90 Base) MCG/ACT Aerosol Solution Inhalation Act zara DULoxetine HCl 30 MG Capsule Delayed Release Particles Oral Ac tive buPROPion HCl ER (XL) 300 MG Tablet Extended Release 24 Hour Oral Active Wellbutrin XL 300 MG Tablet Extended Release 24 Hour Oral Act zara Naproxen 500 MG Tablet Oral Active methylPREDNISolone 4 MG Tabl et Therapy Pack Oral Active Propranolol HCl 60 MG Tablet Oral Active Podofilox 0.5 % Solution External Active Suboxone 8-2 MG Film Sublingual Active Azithromycin 250 MG Tablet Oral Active DULoxetine HCl 60 MG Capsule Delayed Release Particles Oral Ac tive HYDROcodone-Acetaminophen 5-325 MG Tablet Oral Active Plan Of Treatment No Information
--- OUTSIDE RECORDS SUMMARY | 2025-05-28 14:42 | XMS_ITS | Clinical Summary ---
Author Organization [facility] Address [address] [facility], [place] [address] Phone Care Team Providers Care Rat Culturist Name Role Phone Jarocho Plummer MD Primary Care Provider [phone] Allergies No known active allergies Medications DULoxetine (CYMBALTA) [address] Particles Take 60 mg by mouth daily. Active propranolol (INDERAL) 60 MG Tablet Take 60 mg by mouth 3 times daily. Active albuterol 108 (90 Base) MCG/ACT Aerosol Solution take 2 Puffs by inhalation every 4 hours as needed. Active hydroCHLOROthia zide 12.5 MG Tablet Take by mouth daily. Active primidone (MYSOLINE) 50 MG Tablet Take 50 mg by mouth every 6 hours. Active Family History Medical History Relation Name Comments ADD / ADHD Father Depression Father Hypertension Father Relation Name Status Comments Father Social History Tobacco Use Types Packs/Day Years Used Date Smoking Tobacco: Every Day Cigarettes 1 40 Smokeless Tobacco: Never Alcohol Use Standard Drinks/Week Comments Yes 0 (1 standard drink = 0.6 oz pur e alcohol) moderate to heavy Sex and Gender Information Value Date Recorded Sex Assigned at Not on file Legal Sex Male 4:43 PM CDT Gender Identity Not on file Sexual Orientation Not on file Last Filed Vital Signs Vital Sign Reading Time Taken Comments Blood Pressure - - Pulse - - Temperature - - Respiratory Rate - - Oxygen Saturation - - Inhaled Oxygen Concentration - - Weight - - Height 175.9 cm (5' 9.25) 06/20/2019 1:13 PM CD T Body Mass Index - - Plan of Treatment Health Maintenance Due Date Last Done Comments Hepatitis C Virus (HCV) Screening 1968 TdaP Immunization 1968 Hepatitis B Immunization (1 of 3 - 19+ 3-dose series) 11/19/1987 Cologuard 2013 Colonoscopy 2013 Colorectal Cancer Screening 2013 Immunochemical Fecal Occult Blood 2013 Pneumococcal Immunization (5 0+ years) (1 of 1 - PCV) 2018 Zoster Immunization (1 of 2) 2018 Influenza Immunization (#1) 2025 SARS-COV-2 Immunization (1 - 2023-25 season) 2025 Respiratory Syncytial Virus (RSV) Immunization (Adult) (1 - 1-dose 75+ series) 11/19/2043 Human Papillomavirus (HPV) Immunization Aged Out No longer eligible b ased on patient's age to complete this topic Meningococcal Immunization (ACWY) Aged Out No longer eligible based on patient's age to complete this topic Rotavirus Immunization Aged Out No lo nger eligible based on patient's age to complete this topic Insurance MEDICAID [employer] Care Teams Rat Culturist Relationship Specialty Start Date End Date Jarocho Plummer MD [address] [place] [address] PCP - General Internal Medicine 02/18/19
== END 2025-05-28 12:09 | disposition home or self-care (01) ==
PROVIDERS: PCP Family Medicine; Visit Provider Family Medicine
DX: I10 Essential (primary) hypertension (principal); E66.9 Obesity, unspecified; N17.9 Acute kidney failure, unspecified; G47.33 Obstructive sleep apnea (adult) (pediatric)
CPT/HCPCS: 36415; 80053; 80061; 85025

== ENCOUNTER 2025-08-30 14:36 | Emergency (ER) | payer OTHER, SELFPAY ==
--- NOTE | ~2025-08-30 | XR_ITS ---
EXAMINATION: XR chest 2V 08/30/2025 15:02 INDICATION: Cough and congestion PROCEDURE: 2 view chest COMPARISON: Comparison to multiple prior studies sequentially, with oldest reviewed study dated 10/10/2018. FINDINGS: The lungs are clear. The cardiomediastinal silhouette is within normal limits. There are no pleural effusions. There is no pneumothorax suspected. IMPRESSION: 1: NO ACUTE CARDIOPULMONARY DISEASE. Reviewed, dictated and finalized at location O. ING MACHINE TENDER
--- NOTE | 2025-08-30 14:52 | ED_ITS ---
HPI - URI/Sore Throat General Chief Complaint: Upper Respiratory Infection Stated Complaint: wheezing, feels like pulled muscle Time Seen by Provider: 08/30/25 15:00 Source: patient Mode of arrival: ambulatory Limitations: no limitations History of Present Illness HPI Narrative: Roberto is a 54-year-old male patient presenting to the clinic today with complaints of shortness of breath, nonproductive cough, wheezing, and chest/back discomfort with coughing. Here reports symptoms have been going on for over 1 week. History of COPD. He is a current smoker. Denies any fevers, chills, or body aches Related Data Home Medications ?Medication ?Instructions ?Recorded ?Confirmed ?Last Taken ?Type buprenorphine 8 mg-naloxone 2 mg 2 film buccal DAILY 0 01/06/25 06/02/25 Unknown History sublingual film (Suboxone) Allergies Allergy/AdvReac Type Severity Reaction Status Date / Time No Known Allergies Allergy Verified 06/02/25 10:57 Review of Systems Review of Systems: Pertinent positives per HPI. Patient denies any fever, chills, rash, headache, visual changes, dizziness, chest pain, palpitations, nausea, vomiting, diarrhea, constipation, abdominal pain, or any urinary issues. [facility] Past Medical History Medical History Diastolic CHF, chronic Bipolar 1 disorder Single kidney Surgical History Surgical History History of nephrectomy LEFT Family History Family History Father CHF (congestive heart failure) Diabetes mellitus Hypertension Social History Social History Smoking status: Current every day smoker Tobacco type: cigarettes Second hand tobacco smoke exposure: No Additional smoking assessment comments: Pt states he smokes <1 pack/day Alcohol intake: current Substance use: former Lack of Transportation: No Lack of Food: Never True Current Housing: I Have Housing Concerned About Future Housing: No Difficulty Paying Gas/Electric Bills: No Difficulty Paying for Meds: No Currently Unemployed: No Education: Trade/Vocational Certificate Difficulty w/ Childcare or Family Care: No Living arrangements: with family Gender identity (if verbalized by the patient): Male Sexual Orientation (if Verbalized by the Patient): Straight or Heterosexual Spiritual care concerns: No Comments At the time of my signature, I reviewed and agree with the nursing past medical, surgical, social, and family history. There is no relevant family history p ertinent to the patient complaint. Exam Narrative: General: Well-developed, morbidly obese, in no apparent distress Head: Normocephalic, atraumatic Eyes: Pupils equally round and reactive to light bilaterally, EOM intact, sclera and conjunctive clear, no discharge, lids normal Ears: TMs intact and clear, ear canals clear, no drainage, grossly hearing normal. Nose: Nares patent, no discharge, no inflammation, no sinus tenderness. Mouth: Oral pharynx without lesions or masses, good dentition, MMM. Neck: Supple, trachea midline, no enlargement of anterior or posterior cervical nodes, no thyroid masses or goiter palpable. Cardio: Regular rate and rhythm, s1 and s2 normal, no murmur appreciated. Resp: Diminished in the bases with expiratory wheezing, no rhonchi, rales, or rubs Course Course Level of Care: Express Care Visit Vital Signs Vital signs: Vital Signs Temperature 36.3 C L 08/30/25 14:54 Pulse Rate 74 08/30/25 14:54 Respiratory Rate 16 08/30/25 14:54 Blood Pressure 167/82 H 08/30/25 14:54 Pulse Oximetry 94 08/30/25 14:54 Temperature 36.3 C L 08/30/25 14:54 Pulse Rate 74 08/30/25 14:54 Respiratory Rate 16 08/30/25 14:54 Blood Pressure 167/82 H 08/30/25 14:54 Pulse Oximetry 94 08/30/25 14:54 [facility] Narrative Medical decision making narrative: At the time of visit patient is resting comfortably on the exam table. Patient appears to be nontoxic. complaints of shortness of breath, nonproductive cough, wheezing, and chest/back discomfort with coughing. Here reports symptoms have been going on for over 1 week. History of COPD. He is a current smoker. Denies any fevers, chills, or body aches. On exam patient has bilateral TMs intact and clear, no nasal drainage, no anterior turbinate inflammation, no oropharynx redness, no cervical lymphadenopathy, lung sounds diminished with expiratory wheezing, heart rates regular rate and rhythm. Chest x-ray was ordered Diagnostics: Chest x-ray was negative for any acute cardiopulmonary process. Plan: I suspect patient has bronchitis. Prescription for prednisone, albuterol inhaler, and azithromycin was sent to the pharmacy. Supportive measures were discussed with the patient and they voiced understanding discharge instructions and agrees to treatment plan. Return precautions reviewed Differential Diagnosis Differential Diagnosis: Differential diagnostic considerations for upper respiratory infection include upper respiratory infection, croup, otitis media, sinusitis, viral infection, b ronchitis, influenza, pharyngitis, strep, uvulitis. Imaging Data Radiologist's impression: ITS Impressions Chest X-Ray 08/30/25 15:06 IMPRESSION: 1: NO ACUTE CARDIOPULMONARY DISEASE. Discharge Plan Discharge Clinical Impression: Bronchitis Patient Disposition: Home Condition: Stable Instructions: Antibiotic Form, Acute Bronchitis (ED) Additional Instructions: Take prescription medications only as prescribed-prednisone, albuterol inhaler, azithromycin Increase fluids and stay well hydrated May take Tylenol or motrin as directed on bottle for pain/fever May use Flonase 1 spray in each nare daily May take OTC antihistamines such as Zyrtec or Claritin daily as directed on bottle May apply Vicks vapor rub to chest to open sinuses Sinus rinses for congestion Cepacol spray, cough drops, throat lozenges, warm tea with honey/lemon, gargle salt water to soothe throat BRAT diet for diarrhea Clear liquids x 24 hours then advance as tolerated for nausea/vomiting Go to the ED if you develop a worsening in your condition- high fever not controlled by Tylenol or Motrin, dehydration, weakness, lethargy, shortness of breath, or chest pain. Follow up with your PCP in 3-5 days if symptoms persist. Patient Language: Nigerien Prescriptions: New azithromycin 250 mg tablet See Rx Instructions .ROUTE .COMPLEX Qty: 6 0RF Rx Instructions: For 250 mg dose pack: take 500 mg today (day 1), then 250 mg for 4 days (days 2-5) prednisone 20 mg tablet 40 mg PO DAILY 5 Days Qty: 10 0RF albuterol sulfate 90 mcg/actuation HFA aerosol inhaler 2 puff inhalation Q4-6H PRN (Reason: shortness of breath or wheezing) 30 Days Qty: 8.5 0RF No Action mupirocin calcium 2 % cream 1 applic topical BID Qty: 30 0RF buprenorphine-naloxone [Suboxone] 8-2 mg film 2 film buccal DAILY Rx Instructions: place 1 film on inside of (each) cheek hydrochlorothiazide 12.5 mg tablet 12.5 mg PO DAILY Qty: 90 3RF propranolol 60 mg tablet 60 mg PO BID Qty: 180 3RF Follow-up/Referrals: Aamir Ayala DO [Primary Care Provider, [facility]] Time of Disposition: 15:26 Quality NIHSS Nursing Documentation ED NIHSS nursing documentation: reviewed/agree
[2025-08-30 14:54] VITALS: BP 167/82; PULSE 74; RESP 16; TEMP 36.3; O2SAT 94
== END 2025-08-30 15:35 | disposition home or self-care (01) ==
PROVIDERS: Emergency Provider Nurse Practitioner Family; PCP Family Medicine
DX: J40 Bronchitis, not specified as acute or chronic (principal); F17.210 Nicotine dependence, cigarettes, uncomplicated; I50.32 Chronic diastolic (congestive) heart failure; J44.9 Chronic obstructive pulmonary disease, unspecified; Z90.5 Acquired absence of kidney
CPT/HCPCS: 71046; 99213; G0463